=== PATIENT | male | born 1970 | race Caucasian/White ===

== ENCOUNTER 2024-01-05 14:18 | Emergency (ER) | payer MEDICAID, SELFPAY ==
[2024-01-05 14:21] VITALS: BP 135/97; PULSE 90; RESP 17; TEMP 36.4; O2SAT 99
--- NOTE | 2024-01-05 14:45 | DI.CT_ITS ---
Exam(s) CT ABDOMEN PELVIS WO EXAM: CT ABDOMEN PELVIS WO CLINICAL HISTORY: left flank. TECHNIQUE: Imaging Protocol: Axial computed tomography images with coronal and sagittal reformatted images were created and reviewed. COMPARISON: CT RENAL COLIC WO CONTRAST from 01/28/2008 FINDINGS: ABDOMEN: Lung Bases: Normal where visualized. Liver: There is diffuse decreased attenuation of the liver consistent with fatty infiltration. The l iver measures 19 cm long. No measurable mass. Gallbladder and biliary tract: No radiodense calculus or biliary ductal dilation. Pancreas: Normal density, no abnormal calcifications or inflammatory process. Spleen: Normal. Kidneys: Normal size, contour and axis.Bilateral nephrolithiasis. No ureterolithiasis or obstructive uropathy. No masses seen. Adrenal glands: No mass is seen. Lymph nodes: Within normal limits. Abdominal Aorta: Abdominal portion non-dilated. Atherosclerotic calcification is present. PELVIS: Bladder:The urinary bladder is incompletely distended limiting evaluation. Bowel: No obstruction or bowel wall thickening. Appendix is unremarkable. Peritoneal cavity: No ascites, collection or mesenteric inflammatory response. No free air. Reproductive organs: Unremarkable as visualized. Bones: Within normal limits. Soft Tissues: There are small bilateral fat containing inguinal hernias. IMPRESSION: 1. Bilateral nephrolithiasis. No obstructive uropathy. 2. No acute abdominal or pelvic process. 3. Hepatomegaly and hepatic steatosis. RADIATION DOSE DELIVERED: 1,231.83mGy.cm Total DLP DATA REPOSITORY: All CT scans at this facility are submitted to the National Radiology Data Registry (NRDR) Dose Index Registry (DIR) with the [employer] ([employer]). RADIATION OPTIMIZATION: All CT scans at this facility use at least one of these dose optimization te chniques: automated exposure control; mA and/or kV adjustment per patient size (includes targeted exa ms where dose is matched to clinical indication); or iterative reconstruction.
[2024-01-05 14:46] VITALS: O2SAT 99
[2024-01-05 15:01] LABS: Abs Immature Grans 0.01 10^3/uL (0.0-0.06); Absolute Basophil Count 0.05 10^3/uL (0.0-0.2); Absolute Eosinophil Count 0.62 10^3/uL (0.0-0.7); Absolute Lymphocyte Count 3.17 10^3/uL (1.2-3.4); Absolute Monocyte Count 0.58 10^3/uL (0.1-0.8); Absolute Neutrophil Count 2.11 10^3/uL (1.2-6.7); Basophils % 0.8 %; Eosinophils % 9.5 %; HCT 40.7 % (40.0-50.0); HGB 13.7 g/dL (13.5-17.5); Immature Grans % 0.2 %; Lymphocytes % 48.5 %; MCH 28.9 pg (27.0-33.0); MCHC 33.7 % (32.0-36.0); MCV 86 fL (80-95); MPV 8.6 fL (8.0-11.0); Monocytes % 8.9 %; Neutrophils % 32.1 %; Platelet Count 253 10^3/uL (130-400); RBC 4.74 10^6/uL (4.36-5.78); RDW 12.6 % (11.8-14.1); RDW-SD 39.6 fL; WBC 6.54 10^3/uL (4.4-10.8)
[2024-01-05 15:07] LABS: Bilirubin Negative (Negative); Blood Negative (Negative); Clarity Clear (Clear); Glucose Negative (Negative); Ketones Negative (Negative); Leukocyte Esterase Negative (Negative); Nitrite Negative (Negative); Specific Gravity 1.025 (1.005-1.025); Urobilinogen 0.2 mg/dL (Up to 0.2)
[2024-01-05] MEDS: Ondansetron 4 MG/2 ML VIAL IVP (15:11)
[2024-01-05] MEDS: Ketorolac 15 MG/ML VIAL IVP (15:11)
[2024-01-05 15:15] LABS: ALT 42 U/L (16-63); AST 25 U/L (15-37); Albumin 3.7 g/dL (3.4-5.0); Alkaline Phosphatase 46 U/L (46-116); Anion Gap 9.2 mmol/L (3-11); BUN 10 mg/dL (7-18); Bilirubin, Total 0.59 mg/dL (0.2-1.0); CO2 26.8 mmol/L (21.0-32.0); CREATININE 0.9 mg/dL (0.70-1.30); Calcium 9.5 mg/dL (8.5-10.1); Chloride 100 mmol/L (98-107); Estimated GFR 102.76 (mL/min/1.73m2); Glucose 153 mg/dL (74-106); Lipase 41 U/L (16-77); Potassium 3.5 mmol/L (3.5-5.1); Sodium 136 mmol/L (136-145); Total Protein 8.6 g/dL (6.4-8.2)
[2024-01-05 15:40] LABS: *AMPHETAMINES SCREEN URINE Negative (Negative); *BARBITURATES SCREEN URINE Negative (Negative); *BENZODIAZEPINES SCREEN URINE Negative (Negative); Cannabinoids THC Negative (Negative); Cocaine Screen,Urine Negative (Negative); METHADONE URINE SCREEN Negative (Negative); OPIATES URINE SCREEN Negative (Negative)
[2024-01-05 15:42] LABS: Tricyclic Antidepressants Negative (Negative)
[2024-01-05] MEDS: Cyclobenzaprine 10 MG TAB, 3 TABS/BTL PO (16:07)
[2024-01-05 16:10] VITALS: BP 128/88; PULSE 72; TEMP 36.6; O2SAT 90
--- NOTE | 2024-01-05 20:31 | ED.GENADUL_ITS ---
Discharge Plan Disposition Patient Disposition: Home Condition: Stable Discharge Details Clinical Impression: Acute flank pain Primary Care Provider: Unknown,Unknown ED Provider: Zuleyka Guevara Home Meds and New Rx's Prescriptions: Continued metoprolol succinate 50 mg tablet extended release 24 hr 50 mg PO DAILY Patient Comments: take 1 tablet by mouth once daily hydrochlorothiazide 12.5 mg capsule 12.5 mg PO BID Patient Comments: TAKE ONE CAPSULE BY MOUTH TWICE A DAY escitalopram oxalate 20 mg tablet 20 mg PO DAILY Patient Comments: take 1 tablet by mouth once daily metoprolol tartrate 25 mg tablet 25 mg PO PRN PRN Patient Comments: take 1 tablet by mouth once daily if needed IF EXPERIENCING [employer] Vraylar 1.5 mg capsule 1.5 mg PO DAILY Patient Comments: take 1 capsule by mouth once daily Discharge Instructions Instructions: Flank Pain (DC) Additional Instructions: You have stones in your kidneys but no stones in your ureters or the tubes that go down to your bladder from your kidney, stones in your kidneys do not typically cause any discomfort. My recommendation would be to take ibuprofen and Tylenol and manage your back pain supportively. Please return or be reassessed should you have fever, chills, or any new or worsening complaints. Please follow-up with your urologist when you arrive home HPI General Date/Time Provider Initiated Documentation: 01/05/24 14:42 . HPI Narrative: This 53-year-old male presents with report of left flank pain that started early this morning. He also states he has had some nausea. He reportedly is visiting [place] and from [place]. States he has a history of kidney stones. Denies any urinary complaints. Related Data Home Medications Medication Instructions Recorded Confirmed cariprazine 1.5 mg capsule 1.5 mg PO DAILY 01/05/24 01/05/24 (Vraylar) escitalopram oxalate 20 mg tablet 20 mg PO DAILY 01/05/24 01/05/24 hydrochlorothiazide 12.5 mg capsule 12.5 mg PO BID 01/05/24 01/05/24 metoprolol succinate 50 mg 50 mg PO DAILY 01/05/24 01/05/24 tablet,extended release 24 hr metoprolol tartrate 25 mg tablet 25 mg PO PRN PRN 01/05/24 01/05/24 Allergies Allergy/AdvReac Type Severity Reaction Status Date / Time morphine Allergy Mild Skin Rash Verified 01/05/24 14:28 metoclopramide [From Reglan] AdvReac Intermediate Other (See Verified 01/05/24 14:28 Comment) prochlorperazine AdvReac Intermediate Other (See Verified 01/05/24 14:28 [From Compazine] Comment) General Stated Complaint: FlankPain KEVON: 3 Exam Narrative Exam Narrative: Alert and oriented 53-year-old male, no scleral icterus, no rebound or guarding on abdominal exam, mild CVA tenderness, lungs clear to auscultation, cardiac rate rhythm regular, no pallor, alert and oriented x 4, distal pulses intact, no abdominal bruit or pulsatile mass. Course Vital Signs Vital signs: Vital Signs Temperature 36.4 C 01/05/24 14:21 Pulse 90 01/05/24 14:21 Respiratory Rate 17 01/05/24 14:21 Blood Pressure 135/97 H 01/05/24 14:21 Pulse Oximetry 99 01/05/24 14:21 Temperature 36.6 C 01/05/24 16:10 Temperature Source Temporal Artery Scan 01/05/24 16:10 Pulse 72 01/05/24 16:10 Respiratory Rate 17 01/05/24 14:21 Respiratory Effort Normal, Short of Breath 01/05/24 14:46 Blood Pressure 128/88 01/05/24 16:10 Pulse Oximetry 90 L 01/05/24 16:10 Oxygen Delivery Method Room Air 01/05/24 16:10 Oxygen Flow Rate 0 01/05/24 16:10 Pain Level 7 01/05/24 16:10 Lab/Test Results Lab/Test Results: Laboratory Tests Range/Units 01/05/24 01/05/24 14:44 14:59 WBC (4.4-10.8) 10^3/uL 6.54 RBC (4.36-5.78) 10^6/uL 4.74 Hgb (13.5-17.5) g/dL 13.7 Hct (40.0-50.0) % 40.7 MCV (80-95) fL 86 MCH (27.0-33.0) pg 28.9 MCHC (32.0-36.0) % 33.7 RDW (11.8-14.1) % 12.6 Plt Count (130-400) 10^3/uL 253 MPV (8.0-11.0) fL 8.6 Immature Gran % % 0.2 Neutrophils % % 32.1 Lymphocytes % % 48.5 Monocytes % % 8.9 Eosinophils % % 9.5 Basophils % % 0.8 Nucleated RBC % (0.0-0.3) % 0.0 Absolute Neutrophils (1.2-6.7) 10^3/uL 2.11 Absolute Lymphocytes (1.2-3.4) 10^3/uL 3.17 Absolute Monocytes (0.1-0.8) 10^3/uL 0.58 Absolute Eosinophils (0.0-0.7) 10^3/uL 0.62 Absolute Basophils (0.0-0.2) 10^3/uL 0.05 Sodium (136-145) mmol/L 136 Potassium (3.5-5.1) mmol/L 3.5 Chloride (98-107) mmol/L 100 Carbon Dioxide (21.0-32.0) mmol/L 26.8 Anion Gap (3-11) mmol/L 9.2 BUN (7-18) mg/dL 10 Creatinine (0.70-1.30) mg/dL 0.9 Est GFR (CKD-EPI 2020) (mL/min/1.73m2) 102.76 Glucose (74-106) mg/dL 153 H Calcium (8.5-10.1) mg/dL 9.5 Total Bilirubin (0.2-1.0) mg/dL 0.59 AST (15-37) U/L 25 ALT (16-63) U/L 42 Alkaline Phosphatase (46-116) U/L 46 Total Protein (6.4-8.2) g/dL 8.6 H Albumin (3.4-5.0) g/dL 3.7 Lipase (16-77) U/L 41 Urine Color (Yellow) Yellow Urine Clarity (Clear) Clear Urine pH (5-8) 6.0 Ur Specific [place] (1.005-1.025) 1.025 Urine Protein (Neg-Trace) mg/dL Negative Urine Ketones (Negative) mg/dL Negative Urine Blood (Negative) Negative Urine Nitrite (Negative) Negative Urine Bilirubin (Negative) Negative Urine Urobilinogen (Up to 0.2) mg/dL 0.2 Ur Leukocyte Esterase (Negative) Negative Urine Glucose (Negative) mg/dL Negative Urine Opiates Screen (Negative) Negative Urine Methadone Screen (Negative) Negative Ur Barbiturates Screen (Negative) Negative Ur Tricyclics Screen (Negative) Negative Ur Amphetamines Screen (Negative) Negative U Benzodiazepines Scrn (Negative) Negative Urine Cocaine Screen (Negative) Negative Ur THC Screen (Negative) Negative Medical Decision Making 53-year-old male in no acute distress, history of kidney stones. Given age and lack and history on patient I did order CT and diagnostic labs. CT abdomen and pelvis shows bilateral nephrolithiasis without any ureterolithiasis, low suspicion that nephrolithiasis is causing patient's pain. Urinalysis is clean without infection or blood. Diagnostic labs are reassuring, mild elevation in glucose. Patient does have a history of Suboxone use, he was not forthcoming with this information but I did note this in the PDMP. Patient was given Toradol and antiemetics and has not vomited throughout his stay. He was offered some Flexeril as needed for musculoskeletal pain and will follow-up with his doctor when he returns home. Return precautions reviewed and patient expressed understanding. Quality:SDOH Health Related Social Needs: No Data to Display PFSH All Active Problems (Updated 01/05/24 @ 15:52 by SHARLENE Bender) Acute flank pain (Acute) Social History Smoking/Tobacco Use Status: Never Smoking risk assessment performed?: Yes Alcohol Intake: current Alcohol Intake frequency: holidays/special occasions only Drug use: Never Substance use type: does not use Housing: house Do you feel safe at home: Yes
== END 2024-01-05 16:08 | disposition home or self-care (01) ==
LOC: ER 01-06 00:17
PROVIDERS: Emergency Provider Physician Assistant
DX: R10.9 Unspecified abdominal pain (principal)
CPT/HCPCS: 36415; 80053; 80307; 83690; 96374; 96375; 99284; 74176; 81003; 85025; J1885; J2405